=== PATIENT | female | born 1960 | race Caucasian/White ===

== ENCOUNTER 2018-07-23 08:28 | Outpatient (CLI) ==
[2013-07-12 10:10] VITALS: BMI 30.7
== END 2018-07-23 08:29 | disposition home or self-care (01) ==
LOC: RHC-LAB 08:28
PROVIDERS: ATTEND General Practice
DX: E11.9 Type 2 diabetes mellitus without complications (principal); I10 Essential (primary) hypertension; Z79.899 Other long term (current) drug therapy; Z79.4 Long term (current) use of insulin
CPT/HCPCS: 36415; 80053; 80061; 81001; 83036; 83519; 83525; 84681; 85025

== ENCOUNTER 2018-08-13 13:46 | Outpatient (CLI) ==
[2013-07-12 10:10] VITALS: BMI 30.7
== END 2018-08-13 13:47 | disposition home or self-care (01) ==
LOC: RHC-LAB 13:46
PROVIDERS: ATTEND General Practice
DX: R05 Cough (principal)
CPT/HCPCS: 87502; 87651